=== PATIENT | male | born 1975 | race Caucasian/White ===

== ENCOUNTER 2017-07-21 11:14 | Emergency (ER) | payer OTHER ==
[~2017-07-21] VITALS: Ht 172.7 cm; Wt 77.3 kg
[2017-07-21 11:16] VITALS: BP 155/99
[2017-07-21] MEDS ORDERED: IBUPROFEN 800 MG TABLET PO ONE (13:45)
[2017-07-21] MEDS ORDERED: TraMADol HCL 50 MG TABLET PO ONE (15:00)
== END 2017-07-21 15:12 | disposition home or self-care (01) ==
LOC: EMS 11:19
DX: S93.401A Sprain of unspecified ligament of right ankle, initial encounter (principal); X50.1XXA Overexertion from prolonged static or awkward postures, initial encounter; Y93.89 Activity, other specified; Y92.89 Other specified places as the place of occurrence of the external cause; Y99.8 Other external cause status
CPT/HCPCS: 99284